=== PATIENT | male | born 1975 | race Hispanic/Latino ===

== ENCOUNTER 2020-10-16 10:07 | Outpatient (CLI) | payer BC ==
[2020-10-17 02:28] LABS: SARS-CoV-2 PCR by NAA Not Detected (NotDetected)
== END 2020-10-16 10:08 | disposition home or self-care (01) ==
LOC: CSHLAB 10:07
PROVIDERS: ATTEND Surgery
DX: Z20.822 Contact with and (suspected) exposure to COVID-19 (principal); K42.9 Umbilical hernia without obstruction or gangrene; K40.90 Unilateral inguinal hernia, without obstruction or gangrene, not specified as recurrent
CPT/HCPCS: 87635; U0003; U0005

== ENCOUNTER 2020-10-19 06:06 | Day surgery (SDC) | payer BC ==
[2020-10-18 12:02] VITALS: BMI 31.6
[2020-10-19] MEDS ORDERED: Lidocaine 1% MPF 2 ML VIAL ONE (06:29)
[2020-10-19] MEDS ORDERED: Bupivacaine PF 0.5% 30 ML VIAL ONE (06:53)
[2020-10-19] MEDS ORDERED: EPINEPHrine 1 MG/ML AMP ONE (06:53)
[2020-10-19] MEDS ORDERED: Midazolam HCl 2 mg/2 ml Vial ONE (07:30)
[2020-10-19] MEDS ORDERED: Glycopyrrolate 0.2 MG/ML 5 ML SYRINGE ONE (07:30)
[2020-10-19] MEDS ORDERED: PROPOFOL 20 ML ONE (07:30)
[2020-10-19] MEDS ORDERED: Lidocaine 1% PF 5 ML VIAL ONE (07:30)
[2020-10-19] MEDS ORDERED: Dexamethasone 4 mg/ml Vial ONE (07:30)
[2020-10-19] MEDS ORDERED: Rocuronium Bromide 10 MG/ML (10ML VIAL) ONE (07:30)
[2020-10-19] MEDS ORDERED: Ketorolac Tromethamine 30 MG/ML VIAL ONE (07:30)
[2020-10-19] MEDS ORDERED: Ondansetron PF 4 MG/2 ML Vial ONE (07:30)
[2020-10-19] MEDS ORDERED: Fentanyl 100 MCG/2 ML VIAL ONE (07:30)
[2020-10-19] MEDS ORDERED: Morphine 1 ML ONE (08:31)
[2020-10-19] MEDS ORDERED: HYDROcodone/Acetaminophen 5/325 mg Tablet PO PRN (09:06)
[2020-10-19] MEDS ORDERED: Scopolamine 1.5 mg/72 hour Patch ONE (10:22)
== END 2020-10-19 10:30 | disposition home or self-care (01) ==
LOC: CSHSDC 06:06
PROVIDERS: ATTEND Surgery
PROC: 0WQF4ZZ Repair Abdominal Wall, Percutaneous Endoscopic Approach (ICD-10-PCS; principal; 2020-10-19)
PROC: 0YU64JZ Supplement Left Inguinal Region with Synthetic Substitute, Percutaneous Endoscopic Approach (ICD-10-PCS; principal; 2020-10-19)
DX: K40.90 Unilateral inguinal hernia, without obstruction or gangrene, not specified as recurrent (principal); K42.9 Umbilical hernia without obstruction or gangrene
CPT/HCPCS: J0171; J0690; J1100; J1885; J2250; J2270; J2405; J2704; J3010; S0020